=== PATIENT | male | born 1955 | race Caucasian/White ===

== ENCOUNTER 2019-02-24 18:52 | Inpatient (IN) | payer MEDICARE ==
[~2019-02-24] VITALS: Ht 167.6 cm; Wt 122.9 kg
[~2019-02-24 18:52] MED LIST: ADULT LOW DOSE81 MG; NEXIUM40 MG; NORCO 5-325 TA1 EACH PO; NORVASC10 MG; TOPROL XL25 MG; VENTOLIN HFA INH8 GM INH
[2019-02-24 18:57] VITALS: BP 170/113
[2019-02-24] MEDS ORDERED: CARVEDILOL25 MG PO (19:12)
[2019-02-24] MEDS ORDERED: LOSARTAN POTASS50 MG PO (19:13)
[2019-02-24] MEDS ORDERED: SIMVASTATIN80 MG PO (19:13)
[2019-02-24 19:37] LABS: ABSOLUTE BASOPHILS 0.1 thou/uL (0.0-0.2); ABSOLUTE EOSINOPHILS 0.1 thou/uL (0.0-0.7); ABSOLUTE LYMPHOCYTES 1.9 thou/uL (0.8-5.3); ABSOLUTE MONOCYTES 0.9 thou/uL (0.0-1.2); ABSOLUTE NEUTROPHILS 13.1 thou/uL (1.6-8.1); BASOPHILS 0.5 %; EOSINOPHILS 0.7 %; HEMATOCRIT 34.8 % (42.0-52.0); HEMOGLOBIN 10.5 gm/dL (14.0-18.0); LYMPHOCYTES 11.9 %; MCH 24.1 pg (26.0-34.0); MCHC 30.1 g/dL (28.0-37.0); MCV 80.2 fL (80.0-100.0); MONOCYTES 5.6 %; MPV 8.2 fl. (7.2-11.1); NUCLEATED RBCS 0 /100WBC; PLATELET COUNT* 252 thou/uL (150-400); POLYS 81.3 %; RBC 4.34 mil/uL (4.50-6.00); WBC 16.1 thou/uL (4.0-11.0)
[2019-02-24 19:43] LABS: CALCIUM 8.8 mg/dL (8.5-10.1); CREATININE 1.1 mg/dL (0.6-1.3); POTASSIUM 4.3 mmol/L (3.5-5.1)
[2019-02-24 19:46] LABS: INR 1.1
[2019-02-24 19:54] LABS: ALBUMIN 3.1 g/dL (3.4-5.0); MAGNESIUM 1.9 mg/dL (1.8-2.4); TOTAL BILIRUBIN 0.5 mg/dL (<0.1-1.0)
[2019-02-24 20:54] LABS: URINE BILIRUBIN NEGATIVE (Negative); URINE BLOOD NEGATIVE (Negative); URINE COLOR YELLOW; URINE GLUCOSE-RANDOM NEGATIVE (Negative); URINE KETONES NEGATIVE (Negative); URINE LEUKOCYTES-REFLEX NEGATIVE (Negative); URINE NITRITE-REFLEX NEGATIVE (Negative); URINE PROTEIN 2+ (Negative); URINE SPECIFIC GRAVITY >= 1.030 (1.005-1.030)
[2019-02-24 20:55] LABS: URINE CLARITY HAZY
[2019-02-24 21:02] LABS: SQUAMOUS 4-10 Moderate /LPF (0-3)
[2019-02-24 21:03] LABS: HYALINE CASTS 4-10 Moderate /LPF (None Seen)
[2019-02-24 21:04] LABS: URINE WBC-REFLEX 0-5 Rare /HPF (0-5)
[2019-02-24 21:05] LABS: BACTERIA-REFLEX 1-9 Few /HPF (None Seen); CRYSTALS None Seen /LPF (None Seen); URINE RBC 0-2 Rare /HPF (0-2)
[2019-02-24 21:09] LABS: BE 6.3 mmol/L (-2 to +3); PO2 116.4 mmHg (75.0-100.0)
[2019-02-24 21:13] LABS: PCO2 72.5 mmHg (35.0-45.0)
[2019-02-25] VITALS (71 sets, daily range): BP systolic 93–198; BP diastolic 45–89
[2019-02-25 00:37] LABS: APTT 23.1 Seconds (25.0-31.3); INR 1.1; PROTIME 11.4 Seconds (9.20-11.50)
[2019-02-25 04:27] LABS: BE 5.1 mmol/L (-2 to +3); PCO2 37.3 mmHg (35.0-45.0)
[2019-02-25 08:42] LABS: CALCIUM 8.7 mg/dL (8.5-10.1); CREATININE 1.4 mg/dL (0.6-1.3); MAGNESIUM 1.6 mg/dL (1.8-2.4); POTASSIUM 3.4 mmol/L (3.5-5.1)
[2019-02-25 08:45] LABS: APTT 23.3 Seconds (25.0-31.3); INR 1.1; PROTIME 11.4 Seconds (9.20-11.50)
[2019-02-25 08:56] LABS: INFLUENZA A ANTIGEN Negative (Negative); INFLUENZA B ANTIGEN Negative (Negative)
--- NOTE | 2019-02-25 13:05 | CON ---
[address] [address] CONSULTATION Name: YURI RUCKER Room: [address] IN M.R.#: [id number] Admission: 02/24/19 Attend Phys: Jose Moreno Discharge: Date of : 53 Report #: [id number] THIS REPORT FOR: //name// CC: Tashi Keita DATE OF SERVICE: 02/25/2019 CARDIOLOGY CONSULTATION The patient in ICU 4. HISTORY OF PRESENT ILLNESS: The patient is a 63-year-old male who presented to the ER on 02/24/2019 with increasing shortness of breath. He was found to be in acute respiratory failure with a chest radiographic findings suggesting congestive heart failure. There is a history of remote stenting and chronic obstructive pulmonary disease as well as congestive heart failure. At this point, the patient gives no meaningful history. There is some history obtained from family who describes the progressive increase in dyspnea. He had denied chest pain prior to the admission. Since admission, he has been treated with controlled ventilation and IV Lasix with some modest diuresis. He remains on the ventilator with stable hemodynamics. As noted above, I can obtain no history from the patient at this point. PHYSICAL EXAMINATION: GENERAL: Demonstrates an overweight intubated, middle-aged male. VITAL SIGNS: Blood pressure 127/70, pulse rate 82, respirations are controlled on the ventilator. CHEST: Reveals rare rhonchi, but there is good air movement bilaterally. CARDIAC: Reveals normal first and second heart sounds with a question of S4 gallop. ABDOMEN: Obese. EXTREMITIES: Warm and well perfused without lower extremity edema. LABORATORY DATA: Reveals troponins that are unremarkable. Electrolytes are acceptable. He had a mild leukocytosis on admission in the context [place] [address] CONSULTATION Name: RUCKERYURI Noah Room: [address] IN [facility].#: [id number] Admission: 02/24/19 Attend Phys: Jose Moreno Discharge: Date of : 53 Report #: [id number] NT-BNP is elevated at 1160. IMPRESSION: 1. Acute respiratory failure. 2. Congestive heart failure suggested by chest radiograph. 3. History of remote coronary stenting. 4. Exogenous obesity. RECOMMENDATIONS: 1. Continue parenteral diuresis. 2. Electrolytes and chest radiograph in the morning. 3. Echocardiogram in the a.m. regarding global and segmental left ventricular systolic function as well as intracavitary volumes. We will follow with you. Thank you for allowing us to see Yuri Rizo in cardiovascular assessment. Critical care time is 35 minutes from 11:25-12:00 on 02/25/2019. <ELECTRONICALLY SIGNED> By: Cody Mo MD, [facility] 02/25/19 1305 1201 [id number] Clayton Mo MD, FACC /nt
[2019-02-25 16:09] LABS: MAGNESIUM 2.2 mg/dL (1.8-2.4); POTASSIUM 4.2 mmol/L (3.5-5.1)
[2019-02-25 21:31] LABS: PCO2 70.4 mmHg (35.0-45.0); PO2 42.4 mmHg (75.0-100.0); pH 7.291 (7.340-7.450)
[2019-02-26] VITALS (25 sets, daily range): BP systolic 97–155; BP diastolic 49–102
[2019-02-26 06:00] LABS: HEMOGLOBIN 9.1 gm/dL (14.0-18.0); MCH 24.2 pg (26.0-34.0); MCHC 30.3 g/dL (28.0-37.0); MPV 8.2 fl. (7.2-11.1); RBC 3.75 mil/uL (4.50-6.00); RDW-CV 19.2 % (10.5-14.5); WBC 15.1 thou/uL (4.0-11.0)
[2019-02-26 06:11] LABS: BE 5.8 mmol/L (-2 to +3); PO2 114.5 mmHg (75.0-100.0); pH 7.386 (7.340-7.450)
[2019-02-26 06:16] LABS: PCO2 54.4 mmHg (35.0-45.0)
[2019-02-26 06:20] LABS: ALBUMIN 2.6 g/dL (3.4-5.0); CALCIUM 8.6 mg/dL (8.5-10.1); CREATININE 1.1 mg/dL (0.6-1.3); MAGNESIUM 2.3 mg/dL (1.8-2.4); POTASSIUM 4.1 mmol/L (3.5-5.1); TOTAL BILIRUBIN 0.4 mg/dL (<0.1-1.0); TOTAL PROTEIN 6.2 g/dL (6.4-8.2)
--- NOTE | 2019-02-26 08:23 | CON ---
[address] [address] CONSULTATION Name: RAYMON RUCKER Room: [address] ADM IN M.R.#: [id number] Admission: 02/24/19 Attend Phys: Jose Moreno Discharge: Date of : 53 Report #: [id number] THIS REPORT FOR: //name// CC: Tashi Mcdonnell DO Amos Keita DATE OF SERVICE: 02/25/2019 PULMONARY CONSULTATION ATTENDING PHYSICIAN: Dr. Amos Bergeron. LOCATION: The ICU bed 4. INDICATION FOR CONSULTATION: Acute hypoxic respiratory failure, COPD, left lower lobe infiltrate. CLINICAL SUMMARY: The patient is a 63-year-old male, history of prior smoker, who has a history of COPD and also some CHF. He had been short of breath for 2 weeks at home. The patient worsened, he noticed weakness, he had orthopnea and weight gain. No definite fever, chills or sweats. He was in the Emergency Room Department for several hours. He was tried on BiPAP, initially sats came up in the 80s and 90s, then they went down to the 70s. He became somnolent, probably had CO2 retention, and then was intubated. He has been agitated off propofol. He moves all fours. It appears he will respond to commands, although he is agitated and was given several doses of Lasix in the Emergency Room after IV fluid boluses for possible sepsis. He is on antibiotics and just started on some breathing treatments and steroids. He is down to 60% and 100% on the ventilator. I was asked to see him. PAST MEDICAL HISTORY: He has a questionable history of COPD, possibly untreated obstructive sleep apnea. He has had hiatal hernia with gastroesophageal reflux disease with osteoarthritis and he has had hypertension with coronary artery disease with PCI in his heart. He has benign left kidney lesion removed at surgery. OUTPATIENT MEDICATIONS: Included aspirin 81 mg daily, albuterol inhaler 2 puffs 2-4 times a day, carvedilol 25 mg b.i.d., simvastatin 20 mg daily and then losartan 50 mg daily. He was on Nexium that was discontinued and was also on Norvasc 10 mg that was discontinued as well as his beta barb, Toprol-XL 25 mg. ALLERGIES: He has [place] [address] CONSULTATION Name: RAYMON RUCKER Room: [address]#: [id number] Admission: 02/24/19 Attend Phys: Jose Moreno Discharge: Date of : 53 Report #: [id number] FAMILY HISTORY: Negative for premature cardiopulmonary disease. SOCIAL HISTORY: Lives at home by himself in [place], was smoking a pack of cigarettes a day and has a 40 to 50 pack year history of smoking. Denies any alcohol or illicit drug use. REVIEW OF SYSTEMS: A 14-point review of systems reviewed and negative except for the pertinent positives noted in the HPI. PHYSICAL EXAMINATION: GENERAL: A 63-year-old male and moderately severe acute distress. VITAL SIGNS: Blood pressure was up to 180/100 in the Emergency Room and it is now 116/55 on the floors. He is on no pressors, heart rate is 80, respirations are 18 over backup rate of 18 and temperature is 37 degrees. He is 5 feet 8 inches tall, weight 120 kilograms or 260 pounds. He is orally intubated with a 7.5 oral endotracheal tube and an orogastric tube, it is placed at 25 cm at the lips. HEENT: Pharynx otherwise is clear. Tongue appears enlarged to me and somewhat sticking out of the airway. NECK: Markedly thick with redundant neck tissue, very short bull neck, probably size 20 collar. CHEST: Shows inspiratory and expiratory wheezes and rhonchi in the left lung base. Prolonged expiratory phase noted. CARDIOVASCULAR: Regular rate and rhythm without murmur, gallop or rub. Heart rate 80.is ABDOMEN: Markedly obese without masses or megaly. EXTREMITIES: No calf tenderness. No cyanosis, clubbing or edema. NEUROLOGIC: It is nonfocal exam. He is intact, moves all fours to commands and otherwise doing well with good strength. LABORATORY DATA: Hemoglobin is 10, white count 16,100, platelets are 252,000. Normal differential, no eosinophilia. Sodium is 142, potassium 3.4, BUN is 19, creatinine is 1.4, glucose is 210. Lactic acid was 3.6, repeat is pending. Magnesium is 1.6, being repleted. Prior blood gases from 02/24/2019 on the ventilator starting just showed a pO2 of 116, pH 7.30, pCO2 of 72 at that time with a bicarbonate of 35. This morning, his pO2 is 135, pH 7.50, pCO2 is 37, bicarbonate is 28 with a sat of 98% that was on 100%, 600 and assist control of 24 with a PEEP of 5. Chest x-ray: Several films are reviewed showing increasing left lower lobe infiltrate, possibly a small left effusion. ET tubes are in good position, may have some volume loss in the left lower lobe. No PFTs or echo on this patient. IMPRESSION: 1. Acute respiratory failure, probably related to the left lower lobe pneumonia with COPD, [place] [address] CONSULTATION Name: CHAIMRAYMON Noah Room: [address] IN M.R.#: [id number] Admission: 02/24/19 Attend Phys: Jose Moreno Discharge: Date of : 53 Report #: [id number] 2. Probably untreated obstructive sleep apnea. 3. Possible diastolic heart failure with history of hypertension. 4. Obesity. PLAN: Again, get the patient discontinue smoking. Continue nebulizer treatments, antibiotics with IV Zosyn and IV steroids. We will see how his x-ray looks over the next couple of days, may need a noncontrast CT of the chest at some point in time. Hopefully, when his bronchospasm is under control in 2- 3 days we can work on extubation. Again, he may need a left thoracentesis at some point in time. Full PFTs in the future in 4-6 weeks if he is able to cooperate and may need a sleep study in the future. This has been a 46-minute critical care consult. <ELECTRONICALLY SIGNED> By: Mckenna Tejada MD 02/26/19 0823 1157 [id number] Mireles MD /nt
[2019-02-26 09:27] LABS: CHOLESTEROL 124 mg/dL (<200); HDL CHOLESTEROL 33 mg/dL (>40); LDL CHOLESTEROL 68 mg/dL (<100); SERUM ASSESSMENT Clear; TC:HDL 3.8 Ratio (Not establshd); TRIGLYCERIDE 119 mg/dL (<150); VLDL 24 mg/dL (<40)
[2019-02-26 13:39] LABS: % SATURATION 2 % (20-39); IRON 9 ug/dL (50-175)
--- NOTE | 2019-02-26 16:24 | EKG ---
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
--- NOTE | 2019-02-26 16:25 | EKG ---
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
--- NOTE | 2019-02-26 17:05 | 2DMMODE ---
[place] [address] 2 D/M-MODE ECHOCARDIOGRAM Name: RAYMON RUCKER Noah Room: [address] ADM IN [facility]#: [id number] Admission: 02/24/19 Attend Phys: Rhett Keita Discharge: Date of : 53 Date of Service: 02/26/19 1704 Report #: [id number] THIS REPORT FOR: //name// APPROVED REPORT Study performed: 02/26/2019 10:04:00 EXAM: Comprehensive 2D, Doppler, and color-flow Echocardiogram Patient Location: In-Patient Room #: [facility] Status: routine BSA: 2.25 HR: 97 bpm BP: 135/71 mmHg Rhythm: NSR Other Information Study Quality: Good Indications Dyspnea 2D Dimensions IVSd: 14.38 (7-11mm) LVOT Diam: 20.07 (18-24mm) LVDd: 52.79 mm PWd: 14.73 (7-11mm) Ascending Ao: 32.55 (22-36mm) LVDs: 28.06 (25-40mm) Aortic Root: 29.84 mm Aortic Valve AoV Peak Hunter.: 1.85 m/s AO Peak Gr.: 13.71 mmHg LVOT Max P.48 mmHg AO Mean Gr.: 7.48 mmHg LVOT Mean P.74 mmHg LVOT Max V: 1.69 m/s AO V2 VTI: 33.60 cm LVOT Mean V: 0.97 m/s ELLIOT (VTI): 2.80 cm2 LVOT V1 VTI: 29.78 cm Mitral Valve E/A Ratio: 1.23 MV Decel. Time: 265.21 ms MV E Max Hunter.: 1.28 m/s MV PHT: 76.91 ms MVA (PHT): 2.86 [place] [address] 2 D/M-MODE ECHOCARDIOGRAM Name: RAYMON RUCKER Room: [address] IN .R.#: [id number] Admission: 02/24/19 Attend Phys: Rhett Keita Discharge: Date of : 53 Date of Service: 02/26/19 1704 Report #: [id number] E/Lateral E': 9.85 E/Medial E': 14.22 Medial E' Hunter.: 0.09 m/s Lateral E' Hunter.: 0.13 m/s Pulmonary Valve PV Peak Hunter.: 1.25 m/s PV Peak Gr.: 6.25 mmHg Tricuspid Valve RAP Estimate: 5.00 mmHg TR Peak Gr.: 36.60 mmHg RVSP: 41.00 mmHg PA Pressure: 41.00 mmHg Left Ventricle The left ventricle is normal size. There is normal LV segmental wall motion. Mild concentric left ventricular hypertrophy. Left ventricular systolic function is normal. The left ventricular ejection fraction is within the normal range. LVEF is 55-60%. Right Ventricle The right ventricle is normal size. The right ventricular systolic function is normal. Atria Left atrium is mildly dilated. The right atrium size is normal. Aortic Valve The aortic valve is normal in structure. No aortic regurgitation is present. There is no aortic valvular stenosis. Mitral Valve There is mitral annular calcification. Trace mitral regurgitation. No evidence of mitral valve stenosis. Tricuspid Valve The tricuspid valve is normal in structure. Mild tricuspid regurgitation Pulmonic Valve The pulmonary valve is normal in structure. Trace pulmonic regurgitation. Great Vessels The aortic root is normal in size. IVC is normal in size and collapses >50% [place] [address] 2 D/M-MODE ECHOCARDIOGRAM Name: RUCKERRAYMON Room: [address] IN [facility]#: [id number] Admission: 02/24/19 Attend Phys: Rhett Keita Discharge: Date of : 53 Date of Service: 02/26/19 1704 Report #: [id number] Pericardium There is no pericardial effusion. <Conclusion> The left ventricle is normal size. Mild concentric left ventricular hypertrophy. Left ventricular systolic function is normal. The left ventricular ejection fraction is within the normal range. LVEF is 55-60%. The right ventricle is normal size. Left atrium is mildly dilated. The aortic valve is normal in structure. There is mitral annular calcification. Trace mitral regurgitation. No evidence of mitral valve stenosis. The tricuspid valve is normal in structure. Mild tricuspid regurgitation IVC is normal in size and collapses >50% with inspiration. There is no pericardial effusion. There is normal LV segmental wall motion. <ELECTRONICALLY SIGNED> By: Cody Mo MD, [facility] 02/26/19 1704 03 03 Cody Mo MD, FACC /INF
[2019-02-27] VITALS (13 sets, daily range): BP systolic 112–146; BP diastolic 33–79
[2019-02-27 05:20] LABS: HEMATOCRIT 31.6 % (42.0-52.0); HEMOGLOBIN 9.2 gm/dL (14.0-18.0); MCH 23.8 pg (26.0-34.0); MCHC 29.2 g/dL (28.0-37.0); MCV 81.7 fL (80.0-100.0); MPV 8.9 fl. (7.2-11.1); NUCLEATED RBCS 0 /100WBC; PLATELET COUNT* 214 thou/uL (150-400); RBC 3.87 mil/uL (4.50-6.00); RDW-CV 20.1 % (10.5-14.5); WBC 15.7 thou/uL (4.0-11.0)
[2019-02-27 05:37] LABS: ALBUMIN 2.8 g/dL (3.4-5.0); ALKALINE PHOSPHATASE 43 U/L (46-116); ANION GAP 3 mmol/L (7-16); BUN 23 mg/dL (7-18); CALCIUM 8.8 mg/dL (8.5-10.1); CHLORIDE 105 mmol/L (98-107); CO2 34 mmol/L (21-32); GLUCOSE 178 mg/dL (70-99); SGOT 21 U/L (15-37); SGPT 33 U/L (30-65); SODIUM 142 mmol/L (136-145); TOTAL BILIRUBIN 0.3 mg/dL (<0.1-1.0); TOTAL PROTEIN 6.6 g/dL (6.4-8.2); TROPONIN-I LEVEL <0.06 ng/mL (<0.06)
[2019-02-27 06:18] LABS: ABSOLUTE LYMPHOCYTES 0.5 thou/uL (0.8-5.3); ABSOLUTE MONOCYTES 0.2 thou/uL (0.0-1.2); ABSOLUTE NEUTROPHILS 15.1 thou/uL (1.6-8.1); PLATELET ESTIMATE ADEQUATE; POLYCHROMASIA 1+
[2019-02-27 06:19] LABS: ANISOCYTOSIS 1+; HYPOCHROMASIA 1+; POIKILOCYTOSIS 1+; TARGET CELLS 1+
[2019-02-27 08:39] LABS: BE 5.8 mmol/L (-2 to +3); pH 7.327 (7.340-7.450)
[2019-02-27 08:42] LABS: PCO2 64.7 mmHg (35.0-45.0); PO2 56.7 mmHg (75.0-100.0)
[2019-02-27 18:52] LABS: TOTAL VOLUME 2300 mL
[2019-02-28] VITALS: BP 133/58
[2019-02-28 03:21] VITALS: BP 128/66
[2019-02-28 04:11] LABS: ABSOLUTE LYMPHOCYTES 0.7 thou/uL (0.8-5.3); ABSOLUTE MONOCYTES 0.3 thou/uL (0.0-1.2); ABSOLUTE NEUTROPHILS 9.7 thou/uL (1.6-8.1); BASOPHILS 0.1 %; HEMATOCRIT 30.3 % (42.0-52.0); HEMOGLOBIN 9.1 gm/dL (14.0-18.0); LYMPHOCYTES 6.1 %; MCH 24.3 pg (26.0-34.0); MCHC 29.9 g/dL (28.0-37.0); MCV 81.4 fL (80.0-100.0); MONOCYTES 2.7 %; MPV 8.7 fl. (7.2-11.1); NUCLEATED RBCS 1 /100WBC; PLATELET COUNT* 193 thou/uL (150-400); POLYS 91.1 %; RBC 3.73 mil/uL (4.50-6.00); RDW-CV 19.3 % (10.5-14.5); WBC 10.7 thou/uL (4.0-11.0)
[2019-02-28 04:30] LABS: ALBUMIN 2.6 g/dL (3.4-5.0); CALCIUM 8.4 mg/dL (8.5-10.1); CREATININE 1.1 mg/dL (0.6-1.3); POTASSIUM 4.8 mmol/L (3.5-5.1); TOTAL BILIRUBIN 0.3 mg/dL (<0.1-1.0); TOTAL PROTEIN 6.1 g/dL (6.4-8.2)
[2019-02-28 07:46] VITALS: BP 147/41
[2019-02-28 11:21] VITALS: BP 141/69
[2019-02-28 16:00] VITALS: BP 152/76
[2019-02-28 20:00] VITALS: BP 148/71
[2019-02-28 21:05] LABS: URINE PROTEIN 311 mg/24 hr (30-150); URINE PROTEIN (MG/DL) 13.5 mg/dL (Not Estab.)
[2019-02-28 22:07] LABS: ADENOVIRUS Negative (Negative); INFLUENZA A Negative (Negative); INFLUENZA B Negative (Negative); METAPNEUMOVIRUS Negative (Negative); PARAINFLUENZA 1 Negative (Negative); PARAINFLUENZA 2 Negative (Negative); PARAINFLUENZA 3 Negative (Negative); RHINOVIRUS Positive (Negative); RSV A Negative (Negative); RSV B Negative (Negative)
[2019-03-01] VITALS: BP 113/49
[2019-03-01 04:00] VITALS: BP 116/60
[2019-03-01 08:00] VITALS: BP 132/62
[2019-03-01 11:39] VITALS: BP 142/60
[2019-03-01] MEDS ORDERED: TRAMADOL 50 MG50 MG PO (12:30)
[2019-03-01] MEDS ORDERED: PREDNISONE 10 M10 MG PO (13:08)
[2019-03-01] MEDS ORDERED: LEVAQUIN 750 M750 MG PO (13:10)
== END 2019-03-01 14:10 | disposition home health service (06) | DRG 208 ==
LOC: M.ERS 18:52 → M.ICU 19:56 → M.ERS 19:56 → M.TBA-ER 19:56 → M.ICU 02-25 00:03 → M.2W 02-28 18:13
PROVIDERS: Family Medicine; Internal Medicine; Internal Medicine Pulmonary Disease; Personal Emergency Response Attendant; Registered Nurse; ADMIT Internal Medicine
DX: J96.21 Acute and chronic respiratory failure with hypoxia (principal); I50.33 Acute on chronic diastolic (congestive) heart failure; J15.6 Pneumonia due to other Gram-negative bacteria; R57.0 Cardiogenic shock; E43 Unspecified severe protein-calorie malnutrition; R65.10 Systemic inflammatory response syndrome (SIRS) of non-infectious origin without acute organ dysfunction; I16.1 Hypertensive emergency; J44.1 Chronic obstructive pulmonary disease with (acute) exacerbation; Z68.41 Body mass index [BMI] 40.0-44.9, adult; Q60.0 Renal agenesis, unilateral; J44.0 Chronic obstructive pulmonary disease with (acute) lower respiratory infection; J96.22 Acute and chronic respiratory failure with hypercapnia; K21.9 Gastro-esophageal reflux disease without esophagitis; I11.0 Hypertensive heart disease with heart failure; M19.90 Unspecified osteoarthritis, unspecified site; E78.5 Hyperlipidemia, unspecified; D64.9 Anemia, unspecified; G47.33 Obstructive sleep apnea (adult) (pediatric); R31.0 Gross hematuria; E11.9 Type 2 diabetes mellitus without complications; I25.10 Atherosclerotic heart disease of native coronary artery without angina pectoris; E66.01 Morbid (severe) obesity due to excess calories; Z95.5 Presence of coronary angioplasty implant and graft; Z87.891 Personal history of nicotine dependence; Z90.5 Acquired absence of kidney; Z79.82 Long term (current) use of aspirin; Z79.899 Other long term (current) drug therapy; Z82.49 Family history of ischemic heart disease and other diseases of the circulatory system; Z83.3 Family history of diabetes mellitus; Z80.42 Family history of malignant neoplasm of prostate

== ENCOUNTER → 2019-05-23 | Outpatient (CLI) | payer MEDICARE, MEDICAID ==
[~2019-05-23] MED LIST changes: +CARVEDILOL25 MG PO; +LEVAQUIN 750 M750 MG PO; +LOSARTAN POTASS50 MG PO; +PREDNISONE 10 M10 MG PO; +SIMVASTATIN80 MG PO; +TRAMADOL 50 MG50 MG PO
[2019-05-23 10:45] LABS: CREATININE 1.1 mg/dL (0.6-1.3)
== END ==
LOC: M.LAB 10:00 → M.CT 11:30
PROVIDERS: Family Medicine
DX: N28.1 Cyst of kidney, acquired (principal); K57.30 Diverticulosis of large intestine without perforation or abscess without bleeding; R16.1 Splenomegaly, not elsewhere classified; E11.9 Type 2 diabetes mellitus without complications; I25.10 Atherosclerotic heart disease of native coronary artery without angina pectoris; J98.4 Other disorders of lung; K44.9 Diaphragmatic hernia without obstruction or gangrene; Z90.5 Acquired absence of kidney; Z90.49 Acquired absence of other specified parts of digestive tract; Z85.528 Personal history of other malignant neoplasm of kidney

== ENCOUNTER 2019-12-04 11:01 | Inpatient (IN) | payer MEDICARE, MEDICAID ==
[~2019-12-04] VITALS: Ht 167.6 cm; Wt 121.6 kg
--- NOTE | ~2019-12-04 | PROC ---
[address] [address] PROCEDURE REPORT Name: YUDY RUCKER Room: [address] IN M.R.#: [id number] Admission: 12/04/19 Attend Phys: Jung Garcia MD Discharge: 12/08/19 Date of : 53 Report #: [id number] THIS REPORT FOR: //name// cc: Tashi Mcdonnell Ahmad W. DO ~ THIS REPORT FOR: //name// For GI report, please see the Provation report in Perceptive 7 content. By: 0831Medical Records Staff [facility] /CEDRIC
--- NOTE | ~2019-12-04 | PROC ---
[address] [address] PROCEDURE REPORT Name: YUDY RUCKER Room: [address] ADM IN M.R.#: [id number] Admission: 12/04/19 Attend Phys: Jung Garcia MD Discharge: Date of : 53 Report #: [id number] THIS REPORT FOR: //name// cc: Tashi Mcdonnell Ahmad W. DO ~ THIS REPORT FOR: //name// For GI report, please see the Provation report in Perceptive 7 content. By: [facility]2Medical Records Staff [facility] /CEDRIC
[~2019-12-04 11:01] MED LIST changes: +ASA81BEC PO; +BIDIL TABLET1 EACH PO; +COREG12.5 MG PO; +DORYX MPC120 MG PO; +HYDROCHLOROTHIA25 M2 PO; +LOSARTAN-HCTZ1 EAC3 PO; +METFORMIN HCL500 M3 PO; +MONTELUKAST SODI4 M1 PO; +PANTOPRAZOLE SO40 M1 PO; +PROAIR HFA8.5 GM INH; -VENTOLIN HFA INH8 GM INH; +ZANAFLEX4 M1 PO
[2019-12-04 11:05] VITALS: BP 134/68
[2019-12-04 11:57] LABS: HEMATOCRIT 25.4 % (42.0-52.0); HEMOGLOBIN 7.5 gm/dL (14.0-18.0); MCH 21.9 pg (26.0-34.0); MCHC 29.6 g/dL (28.0-37.0); MPV 9.4 fl. (7.2-11.1); NUCLEATED RBCS 0 /100WBC; PLATELET COUNT* 324 thou/uL (150-400); RBC 3.43 mil/uL (4.50-6.00); RDW-CV 23.8 % (10.5-14.5); WBC 16.3 thou/uL (4.0-11.0)
[2019-12-04 12:04] LABS: INR 1.1; PROTIME 10.9 Seconds (9.20-11.50)
[2019-12-04 12:07] LABS: CALCIUM 8.9 mg/dL (8.5-10.1); CREATININE 0.9 mg/dL (0.6-1.3); POTASSIUM 5.1 mmol/L (3.5-5.1)
[2019-12-04 12:11] LABS: ALBUMIN 3.3 g/dL (3.4-5.0); MAGNESIUM 1.8 mg/dL (1.8-2.4); TOTAL BILIRUBIN 0.6 mg/dL (<0.1-1.0); TOTAL PROTEIN 7.1 g/dL (6.4-8.2)
[2019-12-04 12:17] LABS: BE 12.8 mmol/L (-2 to +3); PO2 90.5 mmHg (75.0-100.0); pH 7.377 (7.340-7.450)
[2019-12-04 12:20] LABS: PCO2 69.2 mmHg (35.0-45.0)
[2019-12-04 12:51] LABS: ABSOLUTE BASOPHILS 0.2 thou/uL (0.0-0.2); ABSOLUTE EOSINOPHILS 0.2 thou/uL (0.0-0.7); ABSOLUTE LYMPHOCYTES 0.7 thou/uL (0.8-5.3); ABSOLUTE MONOCYTES 0.2 thou/uL (0.0-1.2); ABSOLUTE NEUTROPHILS 15.2 thou/uL (1.6-8.1); LARGE PLATELETS RARE; PLATELET ESTIMATE ADEQUATE
[2019-12-04 12:52] LABS: ANISOCYTOSIS 1+; HYPOCHROMASIA 1+; MICROCYTES 1+; POIKILOCYTOSIS 1+; POLYCHROMASIA 1+
[2019-12-04 14:36] LABS: URINE BILIRUBIN NEGATIVE (Negative); URINE BLOOD NEGATIVE (Negative); URINE CLARITY CLEAR; URINE COLOR YELLOW; URINE GLUCOSE-RANDOM NEGATIVE (Negative); URINE KETONES NEGATIVE (Negative); URINE LEUKOCYTES-REFLEX NEGATIVE (Negative); URINE NITRITE-REFLEX NEGATIVE (Negative); URINE PROTEIN NEGATIVE (Negative); URINE SPECIFIC GRAVITY 1.015 (1.005-1.030)
[2019-12-04 16:55] VITALS: BP 142/69
[2019-12-04 16:58] VITALS: BP 123/54
--- NOTE | 2019-12-04 18:16 | NUR ---
1655 PT RECEIVED TO ICU 1 FROM ER.SEE ADMISSION ASSESSMENT AND HISTORY. PT ON 2LPM NOW AND WANTS TO EAT DINNER.
[2019-12-04 20:31] VITALS: BP 136/51
[2019-12-05] VITALS (13 sets, daily range): BP systolic 110–161; BP diastolic 49–79
[2019-12-05 03:16] LABS: HEMATOCRIT 23.5 % (42.0-52.0); MCH 21.7 pg (26.0-34.0); MCHC 29.2 g/dL (28.0-37.0); MCV 74.3 fL (80.0-100.0); MPV 8.6 fl. (7.2-11.1); NUCLEATED RBCS 0 /100WBC; RBC 3.16 mil/uL (4.50-6.00); RDW-CV 23.9 % (10.5-14.5); WBC 10.8 thou/uL (4.0-11.0)
[2019-12-05 03:19] LABS: ANION GAP < 0 mmol/L (7-16); BUN 15 mg/dL (7-18); CALCIUM 8.9 mg/dL (8.5-10.1); CHLORIDE 101 mmol/L (98-107); CO2 41 mmol/L (21-32); GLUCOSE 240 mg/dL (70-99); POTASSIUM 4.5 mmol/L (3.5-5.1); SODIUM 141 mmol/L (136-145)
[2019-12-05 03:39] LABS: PLATELET COUNT* 242 thou/uL (150-400)
[2019-12-05 03:40] LABS: HEMOGLOBIN 6.9 gm/dL (14.0-18.0)
--- NOTE | 2019-12-05 04:44 | NUR ---
ASSUMED CARE AT 1910H, ON NC AT 4LPM AND TOLERATED. SEEN ON BED AND WITH TACHYPNEA NOTED. SHIFT TO BIPAP AT 35% AND WELL TOLERATED. NO BLEEDING AND NO ABDOMINAL PAIN. CRITICAL RESULT RELAYED TO [facility] WITH ORDER MADE AND CARRIED OUT. WAITING FOR PRBC FOR BT. CONTINUE MONITORING AND TOWARD GOALS.
[2019-12-05 05:00] LABS: ABSOLUTE LYMPHOCYTES 0.4 thou/uL (0.8-5.3); ABSOLUTE MONOCYTES 0.1 thou/uL (0.0-1.2); ABSOLUTE NEUTROPHILS 10.3 thou/uL (1.6-8.1)
[2019-12-05 05:01] LABS: ANISOCYTOSIS 2+; PLATELET ESTIMATE ADEQUATE
[2019-12-05 05:02] LABS: HYPOCHROMASIA 2+; MICROCYTES 1+
--- NOTE | 2019-12-05 13:37 | NUR ---
ICU ROUNDING: CM SPOKE TO THE RN IN-CHARGE OF THE PT ANDN SHE INFORMS THAT THE PT IS NOW TELE STATUS. GI PROCEDURE PLANNED FOR TOMORROW. NO OTHER CONCERNS NOTED. CM SPOKE TO THE PT TO DISCUSS HIS HOME SITUATION, DISCHARGE PLANNING, AND TO INFORM OF THE ROLE OF CM. PT A&O, INDEPENDENT WITH ADL'S AND DROVE PRIOR TO ADMIT. PT RESIDES AT HOME WITH SPOUSE AND SHE IS SUPPORTIVE AND INVOLVED IN THE PT'S POC. 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 PT USES HOME O2 @2L, BREATHING TREATMENTS AND BIPAP PROVIDED BY [facility] PRIOR TO ADMIT. PT HAS NO OTHER DME. PT HAS HX OF HH IN THE PAST, BUT COULD NOT RECALL THE NAME. PT HAS NO HX OF SNF. PT PLANS TO RETURN HOME AT D/C. DISCHARGE PLANNING NEEDS TBD AT THIS TIME. CM WILL REMAIN AVAILABLE TO ASSIST AND FOLLOW NEEDED.
--- NOTE | 2019-12-05 13:41 | EKG ---
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 12/05/19 1341 1107 1107 Hiren Metz MD, [facility] /EPI
[2019-12-05 14:15] LABS: HEMATOCRIT 26.2 % (42.0-52.0); HEMOGLOBIN 7.8 gm/dL (14.0-18.0)
--- NOTE | 2019-12-05 17:30 | NUR ---
PT TOLERATING NC 4L/MIN. OUT OF BED STB ASSIST. VOIDING PER URINAL. VSS. TOLERATING DIET. I UNIT OF PRBC TRANSFUSED. REPORT GIVEN TO BRIDGET MARTINEZ, TELE.
--- NOTE | 2019-12-05 18:15 | NUR ---
PT TO ROOM 203 VIA WC. PT UP WITH STEADY GAIT. 02@2L NC. NSR ON MONITOR. DENIES NEEDS
--- NOTE | 2019-12-05 20:15 | CON ---
[address] [address] CONSULTATION Name: YUDY RUCKERN Room: [address] IN M.R.#: [id number] Admission: 12/04/19 Attend Phys: Jung Garcia MD Discharge: Date of : 53 Report #: [id number] THIS REPORT FOR: //name// cc: Tashi Mcdonnell Ahmad W. DO ~ THIS REPORT FOR: //name// CC: Tashi Garcia DATE OF SERVICE: 12/05/2019 REQUESTING PHYSICIAN: Consultation has been requested by Dr. Jung Garcia. INDICATION FOR CONSULTATION: Rcpcp-ds-qeqiyhq hypercarbic respiratory failure. HISTORY OF PRESENT ILLNESS: This is a 64-year-old gentleman with past medical history includes a history of COPD, also appears to have obstructive sleep apnea and obesity hypoventilation syndrome. The patient is on Trilogy as well as oxygen while asleep long-term. He is not on oxygen during the day, long-term. He is not on long-term prednisone. The patient also has a previous history of anemia. The patient is morbidly obese with a body mass index of 43.1. The patient is now admitted with increasing shortness of breath over the last 2 weeks. The patient reports that he has been coughing. He has only brought up scanty sputum or the cough is dry. There is no chest pain. He does have a clear nasal discharge; however, this is longstanding. He does not complain of a sore throat. The patient has not had fever or chills. He does have swelling of lower extremities. He does not have calf pain. The patient does report he has been having heartburn at times; however, there is no nausea or vomiting. He says at that time he has had intermittent constipation. There is no diarrhea. There is no abdominal pain. He did not have urinary complaints at the time of my evaluation. Upon arrival, the patient had testing done for COVID-19 both his antigen as well as PCR are negative. Overnight, he was on a BiPAP. Currently, he is on a nasal cannula. He reports significant improvement in shortness of breath compared with yesterday. The patient's hemoglobin did drop to 6.9 and he was receiving a unit of packed RBCs at the time of my evaluation. The patient's blood pressure is within the normal range. However, towards the lower side at around 120/55. He appears to be comfortable on 4 liters nasal cannula at this time and is oxygenating in the high 90s. The patient has had disturbed sleep at night as well as sleepiness during the day. These complaints are improved, but not fully resolved with [place] [address] CONSULTATION Name: YUDY RUCKER Room: [address] IN M.R.#: [id number] Admission: 12/04/19 Attend Phys: Jung Garcia MD Discharge: Date of : 53 Report #: [id number] He says he uses it regularly. REVIEW OF SYSTEMS: I asked him 12 questions for review of systems. The patient's review of systems is negative except as mentioned above. PAST MEDICAL HISTORY: Chronic hypercarbic respiratory failure. The patient's pCO2 on admission is 69, which may not be too far off from his baseline. It appears that his baseline pCO2 is in the 60s, COPD, obstructive sleep apnea, obesity hypoventilation syndrome, coronary artery disease. He has stents. He has had a left-sided nephrectomy. The patient has history of hypertension and is on multiple medications for hypertension. The patient's last available echocardiogram is from June of this year and shows a left ventricular ejection fraction of 65% with a pulmonary artery systolic of 41. There was moderate left ventricular hypertrophy consistent with his history of hypertension, congestive heart failure secondary to diastolic dysfunction, hiatal hernia, hyperlipidemia. I do not see diabetes mentioned in his past medical history; however, it is noted that the patient's home medication list includes metformin. SOCIAL HISTORY: There is an extensive history of smoking more than 2 packs a day for several decades. The patient reports having now discontinued. According to the records, he may have been smoking either until last year or until 2014. No known history of heavy alcohol use or illegal drug use. CURRENT MEDICATIONS: List in [facility], reviewed. HOME MEDICATIONS: List also in [facility], reviewed. FAMILY HISTORY: There is no pertinent family history known at this time. PHYSICAL EXAMINATION: GENERAL: Alert, awake and oriented, does not appear to be in any distress at this time. VITAL SIGNS: Has a pulse of 65 regular with a blood pressure of 120/55. He is saturating 98%. He is on 4 liters nasal cannula. His respiratory rate is 20. He is afebrile with a temperature of 36.8 and he has been afebrile since admission, body mass index is elevated to 43. HEENT: Head is normocephalic and atraumatic. Pupils are equal and reactive. There is no throat erythema. Airway is narrow at Mallampati 4. NECK: Does not show raised JVP, asymmetry, mass or lymph nodes. CHEST: Symmetrical expansion on inspection and palpation. On auscultation, breath sounds are bilaterally equal, but diminished. I do not hear any added sounds. HEART: Regular. There is no murmur. ABDOMEN: Mildly distended, nontender. EXTREMITIES: Lower extremities show 1+ edema. There is no calf tenderness. SKIN: [place] [address] CONSULTATION Name: YUDY RUCKER Room: [address] IN .R.#: [id number] Admission: 12/04/19 Attend Phys: Jung Garcia MD Discharge: Date of : 53 Report #: [id number] NEUROLOGICAL: Moves all extremities bilaterally equally and spontaneously with no focal deficit identified. LABORATORY DATA: The patient's chest x-ray from yesterday is reviewed. Note, this is from yesterday. As from yesterday, there is no pulmonary vascular congestion. There is a radiopaque density in the left lower lobe, which looks significantly larger than the previous chest x-rays that may indicate a left lower lobe infiltrate. The patient's arterial blood gas consistent with hkthi-sd-liwyihu hypercarbic respiratory failure in [facility] reviewed. CBC and chemistries also in [facility] reviewed, significant hyperglycemia is noted. Urinalysis is in [facility] reviewed. Testing for COVID-19 is negative mentioned above. ASSESSMENT AND PLAN: 1. Nxtmv-zh-asmnulq hypercarbic respiratory failure. Recommend titrating down oxygen to O2 saturation in the low 90s. The patient is using our BiPAP while asleep. I requested him to have his family bring his own Trilogy machine here. Once his own Trilogy machine is here, we will switch him over to his own Trilogy machine. He has been using oxygen in line with Trilogy long-term, will need to evaluate prior to his discharge regarding daytime oxygen needs as well and may consider an ambulatory pulse ox on the day of discharge. 2. Chronic obstructive pulmonary disease exacerbation. Continue Solu-Medrol. We will start tapering down the dose. He remains on DuoNeb. We will continue. 3. Left lower lobe infiltrate. He had an opacity in the same region of the previous chest x-ray as well; however, this does look larger now. I will order more cultures and serologies. In the meantime, I agree with continuing with Levaquin as currently prescribed. 4. Congestive heart failure secondary to diastolic dysfunction/fluid overload. The patient does appear to be fluid overloaded on my exam at this time; however, he is fairly comfortable on 4 liters nasal cannula and is oxygenating in the high 90s. Considering that his blood pressure is on the lower side, I did not immediately give him Lasix. I did order a chest x-ray now, which shows an increase in pulmonary vascular congestion. I will proceed with Lasix afterwards. Otherwise, may consider cutting back the dose of antihypertensive medications and administration of Lasix when blood pressure increases later. 5. Obstructive sleep apnea with obesity hypoventilation syndrome. See discussion above. 6. Anemia. The patient is higher than average risk for performing gastrointestinal scopes. However, if there is a concern regarding ongoing gastrointestinal bleeding, then may proceed while understanding higher than average risk. 7. Hyperglycemia/history of metformin use. See discussion above. 8. Morbid obesity. Weight loss is strongly recommended. [address] [place] [address] CONSULTATION Name: YUDY RUCEKR Room: M.203-P ADM IN M.R.#: [id number] Admission: 12/04/19 Attend Phys: Jung Garcia MD Discharge: Date of : 53 Report #: [id number] 9. History of coronary artery disease. 10. History of nephrectomy. The patient's creatinine is normal. <ELECTRONICALLY SIGNED> By: Alistair Valera MD 12/05/192014 1233 1455Asammy Valera MD /nt
[2019-12-06] VITALS: BP 112/61
[2019-12-06 04:00] VITALS: BP 106/29
[2019-12-06 04:30] VITALS: BP 110/61
[2019-12-06 05:11] LABS: ABSOLUTE LYMPHOCYTES 1.2 thou/uL (0.8-5.3); ABSOLUTE MONOCYTES 0.3 thou/uL (0.0-1.2); ABSOLUTE NEUTROPHILS 12.2 thou/uL (1.6-8.1); HEMATOCRIT 25.5 % (42.0-52.0); HEMOGLOBIN 7.9 gm/dL (14.0-18.0); LYMPHOCYTES 8.8 %; MCH 22.8 pg (26.0-34.0); MCHC 30.9 g/dL (28.0-37.0); MONOCYTES 2.2 %; MPV 7.9 fl. (7.2-11.1); NUCLEATED RBCS 0 /100WBC; PLATELET COUNT* 255 thou/uL (150-400); RBC 3.45 mil/uL (4.50-6.00); RDW-CV 24.5 % (10.5-14.5); WBC 13.7 thou/uL (4.0-11.0)
--- NOTE | 2019-12-06 05:14 | NUR ---
PT CARE ASSUMED AT 1930. SAT MAINTAINED IN O2. ALERT AND ORIENTED X4. DENIES PAIN. SOB WITH EXERTION. CALL LIGHT WITHIN REACH AND BED IN LOW POSITION. HOURLY ROUNDING DONE FOR PT SAFETY.
[2019-12-06 05:28] LABS: CALCIUM 8.6 mg/dL (8.5-10.1); CREATININE 1.3 mg/dL (0.6-1.3); MAGNESIUM 2.3 mg/dL (1.8-2.4); POTASSIUM 4.3 mmol/L (3.5-5.1)
[2019-12-06 08:00] VITALS: BP 125/65
--- NOTE | 2019-12-06 13:37 | NUR ---
GI following, Pt to have EGD today.
--- NOTE | 2019-12-06 14:11 | 2DMMODE ---
[place] [address] 2 D/M-MODE ECHOCARDIOGRAM Name: YUDY RUCKER Room: [address] IN [facility]#: [id number] Admission: 12/04/19 Attend Phys: Jung Garcia, Discharge: Date of : 53 Date of Service: 12/06/19 1411 Report #: [id number] THIS REPORT FOR: cc: Tashi Mcdonnell,Sam Mosquera MD [facility] ~ APPROVED REPORT Study performed: 12/06/2019 11:27:37 EXAM: Comprehensive 2D, Doppler, and color-flow Echocardiogram Patient Location: In-Patient Room #: [facility] Status: routine BSA: 2.24 HR: 68 bpm Rhythm: NSR Other Information Technically limited study due to body habitus. Indications Dyspnea Echo Enhancing Agent Indication: Endocardial border delineation Agent(s) / Amount(s) Used: Optison 3 cc 2D Dimensions IVSd: 13.78 (7-11mm) LVOT Diam: 20.30 (18-24mm) LVDd: 57.23 mm PWd: 12.74 (7-11mm) Ascending Ao: 30.11 (22-36mm) LVDs: 27.89 (25-40mm) Aortic Root: 32.00 mm Volumes Left Atrial Volume (Systole) LA ESV Index: 34.40 mL/m2 Aortic Valve AoV Peak Hunter.: 1.67 m/s AO Peak Gr.: 11.22 mmHg LVOT Max P.78 mmHg AO Mean Gr.: 5.73 mmHg LVOT [place]76 [place] [address] 2 D/M-MODE ECHOCARDIOGRAM Name: RUCKERBIBIANAYUDY JACQUIE Room: [address] IN M.R.#: [id number] Admission: 12/04/19 Attend Phys: Jung Garcia, Discharge: Date of : 53 Date of Service: 12/06/19 1411 Report #: [id number] LVOT Max V: 1.30 m/s AO V2 VTI: 32.76 cm LVOT Mean V: 0.74 m/s ELLIOT (VTI): 2.63 cm2 LVOT V1 VTI: 26.61 cm Mitral Valve E/A Ratio: 2.01 MV Decel. Time: 236.20 ms MV E Max Hunter.: 1.36 m/s MV PHT: 68.50 ms MVA (PHT): 3.21 cm2 TDI E/Lateral E': 68.00 E/Medial E': 17.00 Medial E' Hunter.: 0.08 m/s Lateral E' Hunter.: 0.02 m/s Pulmonary Valve PV Peak Hunter.: 1.11 m/s PV Peak Gr.: 4.95 mmHg Tricuspid Valve RAP Estimate: 5.00 mmHg TR Peak Gr.: 27.36 mmHg RVSP: 32.00 mmHg PA Pressure: 32.00 mmHg Left Ventricle The left ventricle is normal size. There is normal LV segmental wall motion. Mild concentric left ventricular hypertrophy. Left ventricular systolic function is normal. LVEF is 60-65%. Grade II - pseudonormal filling dynamics. Right Ventricle The right ventricle is normal size. The right ventricular systolic function is normal. Atria Left atrium is mildly dilated. Right atrium is mildly dilated. Aortic Valve The aortic valve is normal in structure. No aortic regurgitation is present. There is no aortic valvular stenosis. Mitral Valve There is mitral annular calcification. Mild mitral regurgitation. No evidence [place] [address] 2 D/M-MODE ECHOCARDIOGRAM Name: YUDY RUCKER Room: [address] IN [facility]#: [id number] Admission: 12/04/19 Attend Phys: Jung Garcia, Discharge: Date of : 53 Date of Service: 12/06/19 1411 Report #: [id number] Tricuspid Valve The tricuspid valve is normal in structure. Mild tricuspid regurgitation. The RVSP is 30-35 mmHg. Pulmonic Valve The pulmonary valve is normal in structure. Trace pulmonic regurgitation. Great Vessels The aortic root is normal in size. IVC is not well visualized. Pericardium There is no pericardial effusion. <Conclusion> The left ventricle is normal size. Mild concentric left ventricular hypertrophy. Left ventricular systolic function is normal. LVEF is 60-65%. Grade II - pseudonormal filling dynamics. Left atrium is mildly dilated. Right atrium is mildly dilated. Mild mitral regurgitation. Mild tricuspid regurgitation. The RVSP is 30-35 mmHg. <ELECTRONICALLY SIGNED> By: Sam Garcias MD, FACC 12/06/19 [phone] Sam Garcias MD, FACC /INF
[2019-12-06 17:18] VITALS: BP 94/40
--- NOTE | 2019-12-06 17:36 | CON ---
[address] [address] CONSULTATION Name: CHAIMYUDY JACQUIE Room: [address] IN M.R.#: [id number] Admission: 12/04/19 Attend Phys: Jung Garcia MD Discharge: Date of : 53 Report #: [id number] THIS REPORT FOR: //name// cc: Tashi Mcdonnell Ahmad W. DO THIS REPORT FOR: //name// CC: Tashi Hanson DICTATED BY: Kenyatta Hung [facility] DATE OF SERVICE: 12/05/2019 Please note at the time of this dictation, the patient was seen and physically examined by myself. REASON FOR CONSULTATION: Anemia. HISTORY OF PRESENT ILLNESS: This 64-year-old male presented to the Emergency Room with chief complaint of having worsening of his shortness of breath and increased weakness. He has noticed a cough, which he says once in a while he will cough up a little blood-tinged sputum. He states normally he wears 2 liters of oxygen at home, but to get around and everything, he has had increased that to 4 liters here for the past few days prior to admission. He has had previous admissions for his COPD that he has needed to be intubated for this as well. The patient underwent EGD and colonoscopy back in 2017 for his anemia. At that time, EGD showed small hiatal hernia, some gastritis with some antral erosions and duodenitis. Colon revealed diverticulosis, moderate internal and external hemorrhoids and polyps, hyperplastic and tubular adenoma. The patient states he has not been taken any iron at home because it causes him severe constipation. His last hemoglobin that was noted back in was 10.9 several years ago. The patient states he has not had any recent blood work done via his PCP either. He does have considerable amount of constipation, which he will take 3 Colace at that time if he needs to and many times he has to strain to have a bowel movement and he may notice a little bit of bright red blood on the tissue. ALLERGIES: LISINOPRIL. MEDICATIONS: From home include hydrochlorothiazide, metformin, Coreg, pantoprazole, aspirin, albuterol, simvastatin, losartan, prednisone, Singulair, albuterol, and isosorbide dinitrate. PAST MEDICAL HISTORY: Hypertension. He has got a small hiatal hernia. He has got a history of stents [place] [address] CONSULTATION Name: UYDY RUCKER Room: [address]#: [id number] Admission: 12/04/19 Attend Phys: Jung Garcia MD Discharge: Date of : 53 Report #: [id number] PAST SURGICAL HISTORY: He has had a left nephrectomy and coronary stents placed. FAMILY HISTORY: Noncontributory. SOCIAL HISTORY: Past use of cigarettes. Denies any alcohol or illegal drug use. REVIEW OF SYSTEMS: Twelve-point review of systems is essentially negative except what is mentioned in the HPI. PHYSICAL EXAMINATION: VITAL SIGNS: Temperature 36.8, pulse 62, respirations 20, blood pressure 122/77. HEART: Regular rate and rhythm. LUNGS: Diminished with some faint crackles in the bases. ABDOMEN: Very rotund, positive bowel sounds, no masses or tenderness noted. LABORATORY DATA: Hemoglobin on admission 7.5, he is down to 6.9 and getting a unit of blood this morning, white count 10.8, platelets 242. GFR 75. Iron 19, percentage sat is 5. Ferritin was 15. B12 is 575. IMPRESSION: 1. Iron deficiency anemia, recurrent. 2. Constipation. 3. Chronic obstructive pulmonary disease. 4. O2 dependent. 5. Morbid obesity. PLAN: 1. We will need to obtain clearance from pulmonary. If okay, could consider EGD tomorrow. 2. We would recommend the patient getting iron infusions on a regular basis. We will have the hospitalist get that set up. 3. Continue his stool softeners. 4. Await above to see if he is a candidate for an EGD tomorrow with Dr. Daniel. Thank you for allowing us to participate in this patient's care. Please do not hesitate to call with any questions in regard to this consult. <ELECTRONICALLY SIGNED> By: Drake Daniel DO 12/06/19 1736 1114 1132Drake Daniel DO /nt
--- NOTE | 2019-12-06 19:00 | NUR ---
Pt. aox4, vss, denies pain, sr on monitor. off unit for EGD. 1200 vitals and blood glucose charted by EGD nurse. call light and personal belongings placed within reach. pt. in bed watching tv, in no apparent discomfort at time of shift change
[2019-12-06 20:00] VITALS: BP 143/57
[2019-12-07] VITALS: BP 111/55
[2019-12-07 04:00] VITALS: BP 131/54
--- NOTE | 2019-12-07 05:04 | NUR ---
PT SLEPT WELL USING HOME TRILOGY WITHOUT COMPLAINTS OF PAIN OR PROBLEMS. UP AD ALBA TO BR TO VOID. LFA SL IV, IRON INFUSION GIVEN ORDERED. O2 3L NC. HS ACCUCHECK 338, INSULIN GIVEN ORDERED. TELE SR. AM LABS. TO HAVE CXR TODAY. PT CLEAR LIQUID DIET THIS MORNING-ANTICIPATING COLONOSCOPY TUESDAY.ABLE TO USE CALL LITE AND MAKE NEEDS KNOWN. CALL LITE IN EASY REACH.
[2019-12-07 05:17] LABS: ALBUMIN 2.5 g/dL (3.4-5.0); CALCIUM 8.2 mg/dL (8.5-10.1); CREATININE 1.1 mg/dL (0.6-1.3); MAGNESIUM 2.7 mg/dL (1.8-2.4); POTASSIUM 4.5 mmol/L (3.5-5.1); TOTAL BILIRUBIN 0.2 mg/dL (<0.1-1.0)
[2019-12-07 07:01] LABS: ABSOLUTE LYMPHOCYTES 1.2 thou/uL (0.8-5.3); ABSOLUTE MONOCYTES 0.6 thou/uL (0.0-1.2); BASOPHILS 0.4 %; HEMATOCRIT 27.2 % (42.0-52.0); HEMOGLOBIN 8.2 gm/dL (14.0-18.0); LYMPHOCYTES 9.9 %; MCH 22.6 pg (26.0-34.0); MCHC 30.1 g/dL (28.0-37.0); MCV 74.9 fL (80.0-100.0); MONOCYTES 4.8 %; MPV 8.4 fl. (7.2-11.1); NUCLEATED RBCS 0 /100WBC; PLATELET COUNT* 250 thou/uL (150-400); POLYS 84.9 %; RBC 3.63 mil/uL (4.50-6.00); RDW-CV 25.1 % (10.5-14.5); WBC 11.8 thou/uL (4.0-11.0)
[2019-12-07 08:01] VITALS: BP 138/43
--- NOTE | 2019-12-07 09:07 | NUR ---
ASSUMED CARE OF PT THIS AM AROUND 0715- INSPECTOR MISSILE IN PLACE ORDERED, TRACING SR- UPON ASSESSMENT PT NOTED TO BE RESTING IN BED, WATCHING TV- PT A&O X4- CONT OF BOWEL AND BLADDER- UP AD-ALBA IN ROOM, STEADY GAIT NOTED- DIMINISHED LUNG SOUNDS NOTED, DYSPNEA NOTED ON EXERTION- PT REPORTS PRODUCTIVE COUGH-VSS, O2 SAT 92% ON 3L VIA NC- ABD SOFT/ROUND/OBESE, BS X4 QUADS-GOOD PO INTAKE NOTED THIS AM WITH BREAKFAST- BS MONITORED ORDERED WITH SSI PRESCRIBED- LAST BM REPORTED 12/06/19-IV NOTED TO LEFT FA INTACT AND SL- PT DENIES ANY C/O PAIN/DISCOMFORT AT THIS TIME- CALL LIGHT AND PERSONAL BELONGINGS WITH IN REACH- PT MAKES NEEDS KNOWN- ALL NEEDS MET AT THIS TIME-WCTM
--- NOTE | 2019-12-07 10:56 | NUR ---
Nutrition: pt admit with resp failure, PNA, COPD. BMI 43, wt stable from last fall. Pt receiving clear diet with plan for colonscopy tomorrow. Noted some c/o pain with swallowing. Nursing noted pt tolerated po well this am. Albumin 2.5, BUN 27. BNG 179-338. Meds: metformin, prednisone, insuin. Assessed at low nutrition risk.
--- NOTE | 2019-12-07 11:15 | NUR ---
Pt to have a colonoscopy tomorrow, anticipate dc post colon. No needs anticipated.
[2019-12-07 12:37] VITALS: BP 120/46
[2019-12-07 15:34] VITALS: BP 137/66
[2019-12-07 19:45] VITALS: BP 148/81
[2019-12-08] VITALS (7 sets, daily range): BP systolic 145–152; BP diastolic 58–66
[2019-12-08 04:51] LABS: ABSOLUTE LYMPHOCYTES 2.1 thou/uL (0.8-5.3); ABSOLUTE MONOCYTES 0.7 thou/uL (0.0-1.2); ABSOLUTE NEUTROPHILS 12.7 thou/uL (1.6-8.1); BASOPHILS 0.2 %; EOSINOPHILS 0.1 %; HEMATOCRIT 29.9 % (42.0-52.0); LYMPHOCYTES 13.7 %; MCH 22.8 pg (26.0-34.0); MCHC 30.1 g/dL (28.0-37.0); MCV 75.6 fL (80.0-100.0); MONOCYTES 4.5 %; MPV 8.5 fl. (7.2-11.1); NUCLEATED RBCS 0 /100WBC; PLATELET COUNT* 308 thou/uL (150-400); POLYS 81.5 %; RBC 3.96 mil/uL (4.50-6.00); WBC 15.6 thou/uL (4.0-11.0)
[2019-12-08 04:52] LABS: CALCIUM 8.7 mg/dL (8.5-10.1); POTASSIUM 3.8 mmol/L (3.5-5.1)
--- NOTE | 2019-12-08 06:39 | NUR ---
PT SLEPT FAIRLY WELL OVERNIGHT, UP TO BR FOR BMS TWICE HE STATES BUT DID NOT NOTIFY STAFF TO SEE STOOLS. HAS BEEN NPO SINCE MIDNIGHT EXCEPT MORNING MED WITH SIPS. LFA IV SL, SOLUMEDROL GIVEN THIS MORNING ORDERED. SOAP SUDS ENEMA 1000MLS GIVEN THIS MORNING WITH RETURN OF YELLOW LIQUID. O2 3L NC, USING HOME TRILOGY OVERNIGHT. AM LABS DRAWN. UP AD ALBA IN ROOM. DENIES PAIN OR PROBLEMS, HOPEFUL TO DC HOME AFTER COLONOSCOPY TODAY. ABLE TO USE CALL LITE AND MAKE NEEDS KNOWN. CALL LITE IN EASY REACH. TELE SR.
[2019-12-08 07:50] LABS: ANISOCYTOSIS 1+; HYPOCHROMASIA 1+; OVALOCYTES 1+; PLATELET ESTIMATE ADEQUATE; POIKILOCYTOSIS 1+
[2019-12-08] MEDS ORDERED: PREDNISONE 10 M10 MG PO (08:06)
[2019-12-08] MEDS ORDERED: LASIX 20 MG TAB20 MG PO (08:06)
[2019-12-08] MEDS ORDERED: FLUCONAZOLE 10100 MG PO (08:06)
[2019-12-08] MEDS ORDERED: LEVAQUIN 500 M500 M3 PO (08:06)
--- NOTE | 2019-12-08 09:12 | NUR ---
ASSUMED CARE OF PT THIS AM AROUND 0715- TECH INTERN IN PLACE ORDERED, TRACING SR- UPON ASSESSMENT PT NOTED TO BE RESTING IN BED, WATCHING TV- PT A&O X4- CONT OF BOWEL AND BLADDER- UP AD-ALBA IN ROOM, STEADY GAIT NOTED- DIMINISHED LUNG SOUNDS, DYSPNEA NOTED ON EXERTION- VSS, O2 SAT 97% ON 3L VIA NC- ABD SOFT/OBESE/NON-TENDER, BS X4 QUADS- BM THIS AM R/T BOWEL PREP AND REPORTED TO BE CLEAR FOR COLONOSCOPY THIS AM- IV NOTED TO LEFT FA INTACT AND SL- PT NOTED TO BE TAKEN FOR COLONOSCOPY THIS AM AT 0850- NO C/O PAIN- ALL NEEDS MET AT THIS TIME-WCTM
[2019-12-08] MEDS ORDERED: VENTOLIN HFA INH8 GM INH ×2 (09:54→09:56)
--- NOTE | 2019-12-11 13:07 | PATH ---
[address] [address] PATHOLOGY RPT PROCEDURE Name: YUDY ANDREWS JACQUIE Room: [address] IN M.R.#: [id number] Admission: 12/04/19 Date of : 53 Discharge: 12/08/19 Report #: [id number] Path Case #: [id number] [facility] Accession Number: [id number] . 01 Material submitted: . small bowel - SMALL BOWEL BIOPSY . 01 Clinical history: . SOA for 2 weeks; today unable to walk without severe dyspnea; respiratory failure with bilateral infiltrates; anemia; COPD . 02 Diagnosis: Small bowel biopsy: - Normal small intestinal mucosa. . (LELO:mml; 12/11/2019) QL 12/11/2019 1029 Local . 02 Electronically signed: . Oscar Chairez MD, Pathologist NPI- [id number] . 01 Gross description: . The specimen is received in formalin, labeled "Yudy Andrews, small bowel biopsy for iron deficiency anemia". Received are three segments of pale cervantes soft tissue ranging in size from 0.3 to 0.6 cm in maximum dimensions. The specimen is submitted entirely in cassette A1. (CAA; 12/07/2019) QAC/QAC 12/07/2019 1345 Local . 02 Pathologist provided ICD-10: D50.9 . 02 CPT . 424216 Specimen Comment: A courtesy copy of this report has been sent to [phone] Specimen Comment: [phone], Specimen Comment: Report sent to , / Performed at: 01 [facility] [address] [place] [address] [address], [place], [place] [id number] MD Alonzo Espinoza MD Phone: [phone] Performed at: [address] [address] [place], [place] [id number] MD Oscar Chairez MD Phone: [phone]
--- NOTE | 2019-12-12 16:06 | PATH ---
[address] [address] PATHOLOGY RPT PROCEDURE Name: YUDY ANDREWS Room: [address] IN M.R.#: [id number] Admission: 12/04/19 Date of : 53 Discharge: 12/08/19 Report #: [id number] Path Case #: [id number] [facility] Accession Number: [id number] . 01 Material submitted: . cecum - CECAL POLYP . 01 Clinical history: . Respiratory failure with bilateral infiltrates; anemia; COPD . 02 Diagnosis: Cecal polyp: - Tubular adenoma, negative for high-grade dysplasia. (LELO:pit 12/12/2019) QTP 12/12/2019 1151 Local . 02 Electronically signed: . Oscar Chairez MD, Pathologist NPI- [id number] . 01 Gross description: . The specimen is received in formalin, labeled "Yudy Andrews, cecal polyp". Received are three segments of pale cervantes soft tissue ranging in size from 0.3 to 0.6 cm in maximum dimensions. The specimen is submitted entirely in cassette A1. (CAA; 12/11/2019) QAC/QAC 12/12/2019 1150 Local . 02 Pathologist provided ICD-10: D12.0 . 02 CPT . 586547 Specimen Comment: A courtesy copy of this report has been sent to [phone] Specimen Comment: Report sent to Performed at: 01 [facility] [address], [place], [place] [id number] MD Alonzo Espinoza MD Phone: [phone] Performed at: 02 [facility] [address], [place], [place] [id number] MD Oscar Chairez MD Phone: [phone]
== END 2019-12-08 14:42 | disposition home or self-care (01) | DRG 871 ==
LOC: M.ERS 11:01 → M.ICU 13:26 → M.TBA-ER 13:26 → M.ICU 13:26 → M.2W 12-05 18:02
PROVIDERS: Internal Medicine Gastroenterology; Personal Emergency Response Attendant; ADMIT Internal Medicine; ATTEND Internal Medicine
PROC: 5A09357 Assistance with Respiratory Ventilation, Less than 24 Consecutive Hours, Continuous Positive Airway Pressure (ICD-10-PCS; principal; 2019-12-04)
PROC: 30233N1 Transfusion of Nonautologous Red Blood Cells into Peripheral Vein, Percutaneous Approach (ICD-10-PCS; 2019-12-05)
PROC: 0DB98ZX Excision of Duodenum, Via Natural or Artificial Opening Endoscopic, Diagnostic (ICD-10-PCS; 2019-12-06)
PROC: 5A09357 Assistance with Respiratory Ventilation, Less than 24 Consecutive Hours, Continuous Positive Airway Pressure (ICD-10-PCS; 2019-12-07)
PROC: 0DBH8ZX Excision of Cecum, Via Natural or Artificial Opening Endoscopic, Diagnostic (ICD-10-PCS; 2019-12-08)
DX: A41.9 Sepsis, unspecified organism (principal); J15.6 Pneumonia due to other Gram-negative bacteria; I50.33 Acute on chronic diastolic (congestive) heart failure; J96.21 Acute and chronic respiratory failure with hypoxia; J96.22 Acute and chronic respiratory failure with hypercapnia; J44.1 Chronic obstructive pulmonary disease with (acute) exacerbation; J44.0 Chronic obstructive pulmonary disease with (acute) lower respiratory infection; E66.2 Morbid (severe) obesity with alveolar hypoventilation; Z68.41 Body mass index [BMI] 40.0-44.9, adult; K92.2 Gastrointestinal hemorrhage, unspecified; D64.9 Anemia, unspecified; K20.8 Other esophagitis; I11.0 Hypertensive heart disease with heart failure; D12.0 Benign neoplasm of cecum; K64.4 Residual hemorrhoidal skin tags; K22.9 Disease of esophagus, unspecified; D50.9 Iron deficiency anemia, unspecified; K64.8 Other hemorrhoids; Z20.828 Contact with and (suspected) exposure to other viral communicable diseases; Z95.5 Presence of coronary angioplasty implant and graft; Z90.5 Acquired absence of kidney; Z79.82 Long term (current) use of aspirin; Z79.899 Other long term (current) drug therapy; Z79.84 Long term (current) use of oral hypoglycemic drugs; Z87.891 Personal history of nicotine dependence; Z99.81 Dependence on supplemental oxygen

== ENCOUNTER → 2020-02-05 | Outpatient (CLI) | payer MEDICARE, MEDICAID ==
[~2020-02-05] MED LIST changes: +FLUCONAZOLE 10100 MG PO; +LASIX 20 MG TAB20 MG PO; +LEVAQUIN 500 M500 M3 PO; +VENTOLIN HFA INH8 GM INH
== END ==
LOC: M.RAD 14:53
PROVIDERS: ATTEND Internal Medicine Critical Care Medicine
DX: J96.12 Chronic respiratory failure with hypercapnia (principal); J44.9 Chronic obstructive pulmonary disease, unspecified; E87.79 Other fluid overload; I51.7 Cardiomegaly; J98.11 Atelectasis; J90 Pleural effusion, not elsewhere classified

== ENCOUNTER → 2020-08-07 | Outpatient (CLI) | payer OTHER, MEDICAID | LOC: M.PUL 12:27 | PROVIDERS: ATTEND Internal Medicine Critical Care Medicine | DX: R60.0 Localized edema (principal); R06.02 Shortness of breath ==

== ENCOUNTER → 2020-08-22 | Outpatient (CLI) | payer OTHER, MEDICAID | LOC: M.CT 09:13 | PROVIDERS: ATTEND Internal Medicine Critical Care Medicine | DX: R91.1 Solitary pulmonary nodule (principal); J98.4 Other disorders of lung ==